=== PATIENT | male | born 1990 | race Caucasian/White ===

== ENCOUNTER 2018-12-09 21:49 | Emergency (ER) | payer OTHER, SELFPAY ==
[~2018-12-09] VITALS: Ht 177.8 cm; Wt 83.2 kg
[2018-12-09 21:49] VITALS: BP 133/64
[2018-12-10 00:17] LABS: CHLAMYDIA DNA AMPLIFICATION NEGATIVE (NEGATIVE); GC DNA AMPLIFICATION NEGATIVE (NEGATIVE)
== END 2018-12-10 01:39 | disposition left against medical advice (07) ==
LOC: M ED 21:49
DX: Z20.2 Contact with and (suspected) exposure to infections with a predominantly sexual mode of transmission (principal); Z53.21 Procedure and treatment not carried out due to patient leaving prior to being seen by health care provider